=== PATIENT | female | born 1980 | race African-American/Black ===

== ENCOUNTER 2018-06-28 15:11 | Outpatient (CLI) | payer BC ==
--- NOTE | 2018-06-28 15:58 | ULT ---
Pelvic sonogram transabdominal and transvaginal imaging HISTORY: Pelvic pain and bleeding. LUNGS: Urinary bladder is incompletely distended. The uterus has a very heterogeneous echotexture and is enlarged up to 12.6 cm. Multiple heterogeneous hypoechoic mural masses are present throughout the uterus, distorting the endometrium measuring up to 1.5 cm. Dystrophic calcification at the fundus . No free fluid in the pelvis. Exophytic pedunculated fibroid at the left side of the uterus extends into the region of the adnexa. The fibroid is 6.0 cm greatest diameter. Neither ovary well visualized with transabdominal or transvaginal imaging. IMPRESSION: Extensive fibroid involvement of the enlarged uterus. Thickened endometrium.
== END 2018-06-28 15:12 | disposition home or self-care (01) ==
LOC: BICULT 15:11
PROVIDERS: ATTEND Family Medicine
DX: N92.0 Excessive and frequent menstruation with regular cycle (principal); D25.9 Leiomyoma of uterus, unspecified; R93.89 Abnormal findings on diagnostic imaging of other specified body structures
CPT/HCPCS: 76856

== ENCOUNTER 2019-11-04 08:33 | Outpatient (CLI) | payer BC ==
--- NOTE | 2019-11-04 09:17 | MMO ---
Bilateral MAMMO Bilat Screen [facility]. CLINICAL HISTORY: Patient is 39 years old and is seen for screening. The patient has no family history of breast cancer. The patient has no personal history of cancer. VIEWS: The views performed were: bilateral craniocaudal with tomosynthesis and bilateral mediolateral oblique with tomosynthesis. This study has been interpreted with the assistance of computer-aided detection. MAMMOGRAM FINDINGS: The breasts are extremely dense, which may lower the sensitivity of mammography. There are no suspicious masses, suspicious calcifications, or new areas of architectural distortion. IMPRESSION: THERE IS NO MAMMOGRAPHIC EVIDENCE OF MALIGNANCY. A ROUTINE FOLLOW-UP MAMMOGRAM IN 1 YEAR IS RECOMMENDED. THE RESULTS OF THIS EXAM WERE SENT TO THE PATIENT. ACR BI-RADS Category 1 - Negative MAMMOGRAPHY NOTE: 1. A negative mammogram report should not delay a biopsy if a dominant of clinically suspicious mass is present. 2. Approximately 10% to 15% of breast cancers are not detected by mammography. 3. Adenosis and dense breasts may obscure an underlying neoplasm. Reported by: BAN WALTON MD Electonically Signed: [id number]
== END 2019-11-04 08:34 | disposition home or self-care (01) ==
LOC: BICMAMMO 08:33
PROVIDERS: ATTEND Family Medicine
DX: Z12.31 Encounter for screening mammogram for malignant neoplasm of breast (principal)
CPT/HCPCS: 77063; 77067

== ENCOUNTER 2019-12-02 09:18 | Outpatient (CLI) | payer BC ==
--- NOTE | 2019-12-02 09:35 | RAD ---
EXAM: Chest 2 views: HISTORY: +PPD COMPARISON: None. FINDINGS: There is a normal-sized cardiomediastinal silhouette. There is no evidence of consolidation, mass, or pleural effusion. No acute osseous abnormality. IMPRESSION: No evidence of acute cardiopulmonary disease
== END 2019-12-02 09:19 | disposition home or self-care (01) ==
LOC: BICRAD 09:18
PROVIDERS: ATTEND Family Medicine
DX: R76.11 Nonspecific reaction to tuberculin skin test without active tuberculosis (principal)
CPT/HCPCS: 71046

== ENCOUNTER 2021-02-22 08:07 | Outpatient (CLI) | payer BC | END 2021-02-22 08:08 | disposition home or self-care (01) | LOC: BICMAMMO 08:07 | PROVIDERS: ATTEND Family Medicine | DX: Z12.31 Encounter for screening mammogram for malignant neoplasm of breast (principal) | CPT/HCPCS: 77063; 77067 ==

== ENCOUNTER 2021-04-08 07:07 | Outpatient (CLI) | payer BC | END 2021-04-08 07:08 | disposition home or self-care (01) | LOC: BICULT 07:07 | PROVIDERS: ATTEND Family Medicine | DX: N92.0 Excessive and frequent menstruation with regular cycle (principal); D25.9 Leiomyoma of uterus, unspecified | CPT/HCPCS: 76856; 93976 ==

== ENCOUNTER 2021-11-28 11:38 | Outpatient (CLI) | payer BC | END 2021-11-28 11:39 | disposition home or self-care (01) | LOC: CTENTCT 11:38 | PROVIDERS: ATTEND Otolaryngology Plastic Surgery within the Head & Neck | DX: R09.81 Nasal congestion (principal) | CPT/HCPCS: 70486 ==

== ENCOUNTER 2023-07-31 08:03 | Outpatient (CLI) | payer BC | END 2023-07-31 08:04 | disposition home or self-care (01) | LOC: BICMAMMO 08:03 | PROVIDERS: ATTEND Family Medicine | DX: Z12.31 Encounter for screening mammogram for malignant neoplasm of breast (principal); Z80.3 Family history of malignant neoplasm of breast | CPT/HCPCS: 77063; 77067 ==